=== PATIENT | male | born 1960 | race Caucasian/White ===

== ENCOUNTER 2024-09-12 08:30 | Outpatient (RCR) | payer MEDICARE, MEDICAID, SELFPAY ==
--- NOTE | 2024-08-22 10:46 | PT.ODAYNRPT ---
PT Outpatient Daily Note OP Daily Note Outpatient Physical Therapy Treatment Date: 08/22/24 Visit Reasons: left knee surgery Subjective: Pt's knee hurts more after last session due to heel prop exercise. Pt also reports of having knee stiffness with the first few steps but stiffness goes away. Objective: Left Knee AROM: -20 deg to 115 deg Assessment: Pt's progressing with knee flexion AROM, however, regressing with knee extension due to lack of stretching at home. Pt encouraged and instructed to start stretching at home to improve knee extension lag. Plan: Continue with PT Length of Time (minutes) of Treatment: 30 Minutes Procedure Charges Therapeutic Exercise 30 minutes: Yes
--- NOTE | 2024-08-31 13:13 | PTNOTE_ITS ---
PT Outpatient Daily Note OP Daily Note Outpatient Physical Therapy Treatment Date: 08/31/24 Visit Reasons: left knee surgery Subjective: Pt reports he has been working on his HEP but still feels it is sore. Objective: Please see flow sheet for ther ex list. Assessment: Pt highly guarded during attempt to perform PROM knto knee extension, discontinued. MEDICAL DOCTOR NUCLEAR MEDICINE performed STM to posterior knee, pt tender but able to tolerate. Plan: Assess response to treatment. Length of Time (minutes) of Treatment: 30 Minutes MEDICAL DOCTOR NUCLEAR MEDICINE Service Modifier Method I: Divide the number of min of care provided by the MEDICAL DOCTOR NUCLEAR MEDICINE/HEAD COOK by the total min of care provided then multiply by 100. If greater than 11 percent modifier is required. Method II: Divide the total time of care provided to patient by 10 (round to the nearest whole number) and add 1 min. to set the minimum time requirement. If treatment total was 60 min., then 10% of 6 min PT CQ modifier applied: CQ Modifier applied Procedure Charges Therapeutic Exercise 30 minutes: Yes
--- NOTE | 2024-09-07 10:56 | PT.ODAYNRPT ---
PT Outpatient Daily Note OP Daily Note Outpatient Physical Therapy Treatment Date: 09/07/24 Visit Reasons: left knee surgery Subjective: Pt mention his calf is tight and has been stretching as able at home. Pt notice decrease calf pain after STM from [employer] last session. Objective: Left Knee Flexion AROM: 115 deg Assessment: progressing with knee flexion AROM. Decrease gastroc pain post STM and runner's stretch Plan: Continue with PT Length of Time (minutes) of Treatment: 30 Minutes Procedure Charges Therapeutic Exercise 30 minutes: Yes
--- NOTE | 2024-09-12 09:53 | PT.ODAYNRPT ---
PT Outpatient Daily Note OP Daily Note Outpatient Physical Therapy Treatment Date: 09/12/24 Visit Reasons: left knee surgery Subjective: Pt's knee is better and does not have much concerns. Pt does not seen MD until next month. Objective: Please see flow chart for list of ther ex performed Assessment: added more closed chain and resistance hip exercises with good tolerance Plan: Continue with PT Length of Time (minutes) of Treatment: 30 Minutes Procedure Charges Therapeutic Exercise 30 minutes: Yes
== END 2024-09-16 23:59 | disposition home or self-care (01) ==
LOC: CPTX 08:30
PROVIDERS: PCP Nurse Practitioner Family; Referring Provider Nurse Practitioner Family; Visit Provider Nurse Practitioner Family
DX: M25.562 Pain in left knee (principal); R26.2 Difficulty in walking, not elsewhere classified; R26.89 Other abnormalities of gait and mobility; Z96.652 Presence of left artificial knee joint
CPT/HCPCS: 97110

== ENCOUNTER 2024-10-05 09:00 | Outpatient (RCR) | payer MEDICARE, MEDICAID, SELFPAY ==
--- NOTE | 2024-09-25 08:49 | PT.ODAYNRPT ---
PT Outpatient Daily Note OP Daily Note Outpatient Physical Therapy Treatment Date: 09/25/24 Visit Reasons: left knee surgery Subjective: Pt's knee is better. Pt no longer experience calf pain lately. He continues to stretch at home. Objective: Please see flow chart for list of ther ex performed Assessment: progressing with closed chain exercises. Advanced patient to wall wall squat; patient able to squat to 60 deg of knee flexion Plan: Continue with PT Length of Time (minutes) of Treatment: 30 Minutes Procedure Charges Therapeutic Exercise 30 minutes: Yes
--- NOTE | 2024-09-27 09:07 | PT.ODAYNRPT ---
PT Outpatient Daily Note OP Daily Note Outpatient Physical Therapy Treatment Date: 09/27/24 Visit Reasons: left knee surgery Subjective: Pt still has difficulty putting on his shoes. Objective: Please see flow chart for list of ther ex performed Assessment: patient was instructed on figure four stretch to help improve hip mobility to work on being able to put on his shoes. Pt demonstrate exercises safely Plan: Continue with PT Length of Time (minutes) of Treatment: 30 Minutes Procedure Charges Therapeutic Exercise 30 minutes: Yes
--- NOTE | 2024-10-05 09:48 | PT.ODAYNRPT ---
PT Outpatient Daily Note OP Daily Note Outpatient Physical Therapy Treatment Date: 10/05/24 Visit Reasons: left knee surgery Subjective: Pt reports L knee is doing ok, ROM is not where he would like. Objective: Please see flow sheet for ther ex list. Assessment: Pt demonstrates poor tolerance with heel prop exercise for knee extension due to pain response, pt highly guarded. Plan: Continue with POC. Length of Time (minutes) of Treatment: 30 Minutes NURSING PROGRAM MANAGER Service Modifier Method I: Divide the number of min of care provided by the NURSING PROGRAM MANAGER/MARKETING ASSISTANT by the total min of care provided then multiply by 100. If greater than 11 percent modifier is required. Method II: Divide the total time of care provided to patient by 10 (round to the nearest whole number) and add 1 min. to set the minimum time requirement. If treatment total was 60 min., then 10% of 6 min PT CQ modifier applied: CQ Modifier applied Procedure Charges Therapeutic Exercise 30 minutes: Yes
== END 2024-10-17 23:59 | disposition home or self-care (01) ==
LOC: CPTX 09:00
PROVIDERS: PCP Nurse Practitioner Family; Referring Provider Nurse Practitioner Family; Visit Provider Nurse Practitioner Family
DX: M25.562 Pain in left knee (principal); R26.2 Difficulty in walking, not elsewhere classified; Z96.652 Presence of left artificial knee joint
CPT/HCPCS: 97110

== ENCOUNTER 2024-11-09 09:30 | Outpatient (RCR) | payer MEDICARE, MEDICAID, SELFPAY ==
--- NOTE | 2024-10-25 13:56 | PT.ODS1RPT ---
PT OP Progress/Discharge Note Date of Service: 10/25/24 Progress Note/DC Note Progress Note/Discharge Note: Progress Note Patient Information Visit Reasons: Left knee surgery Medical Diagnosis: z96.652 Treatment Dx #1: Left Knee Mobility Deficits Service Continue Service or Discharge: Continue Service Certification Date Certification Dates: 10/25/24 to 01/23/25 Status Subjective: Pt's knee feels better but still notice some pain. Pt has limitation with putting on shoes, balance, prolonged walking, and performing ADLs. Pt will like to continue physical therapy. Objective: Left Knee AROM: -15 deg to 116 deg Left Knee PROM: -12 deg to 120 deg Left Knee MMTs: grossly 4-/5 Left Hip MMTs: grossly 4-/5 SLS: 5 sec Assessment: Pt is progress with knee AROM and strength allowing him to resume ADLs, walk, and perform chores with less limitation. Pt has not met set goals and will continue to benefit from physical therapy; thank you for your referrals. Plan: Continue with PT/POC and add 8 sessions (2 x wk for 4 wks) Procedure Charges Therapeutic Exercise 30 minutes: Yes
--- NOTE | 2024-11-07 10:36 | PT.ODAYNRPT ---
PT Outpatient Daily Note OP Daily Note Outpatient Physical Therapy Treatment Date: 11/07/24 Visit Reasons: Left knee surgery Subjective: Pt reports L knee continues to be stiff, has been performing HEP. Objective: Please see flow sheet for ther ex list. Assessment: Pt educated and instructed on updated HEP, pt able to replicate with good technique. Plan: Continue with POC. Length of Time (minutes) of Treatment: 30 Minutes AUTO AIR CONDITIONING INSTALLER Service Modifier Method I: Divide the number of min of care provided by the AUTO AIR CONDITIONING INSTALLER/HOUSING QUALITY STANDARD INSPECTOR by the total min of care provided then multiply by 100. If greater than 11 percent modifier is required. Method II: Divide the total time of care provided to patient by 10 (round to the nearest whole number) and add 1 min. to set the minimum time requirement. If treatment total was 60 min., then 10% of 6 min PT CQ modifier applied: CQ Modifier applied Procedure Charges Therapeutic Exercise 30 minutes: Yes
--- NOTE | 2024-11-09 10:24 | PT.ODAYNRPT ---
PT Outpatient Daily Note OP Daily Note Outpatient Physical Therapy Treatment Date: 11/09/24 Visit Reasons: Left knee surgery Subjective: Pt's knee feels stiff but overall improving with ROM. Pt still has difficulty putting on his left shoe. Objective: Please see flow chart for list of ther ex performed Assessment: minimal changes with knee extension lag noted. Pt encourage to continue stretching at home. Progressing with hip exercises with less pain reported Plan: Continue with PT Length of Time (minutes) of Treatment: 30 Minutes Procedure Charges Therapeutic Exercise 30 minutes: Yes
== END 2024-11-17 23:59 | disposition home or self-care (01) ==
LOC: CPTX 09:30
PROVIDERS: PCP Nurse Practitioner Family; Referring Provider Nurse Practitioner Family; Visit Provider Nurse Practitioner Family
DX: M25.562 Pain in left knee (principal); R26.2 Difficulty in walking, not elsewhere classified; R26.89 Other abnormalities of gait and mobility; Z96.652 Presence of left artificial knee joint
CPT/HCPCS: 97110

== ENCOUNTER 2024-12-12 08:24 | Outpatient (RCR) | payer MEDICARE, MEDICAID, SELFPAY | END 2024-12-15 23:59 | disposition home or self-care (01) | LOC: CPTX 08:24 | PROVIDERS: PCP Nurse Practitioner Family; Referring Provider Nurse Practitioner Family; Visit Provider Nurse Practitioner Family | DX: Z53.8 Procedure and treatment not carried out for other reasons (principal) ==

== ENCOUNTER → 2025-06-06 | Outpatient (CLI) | payer MEDICARE, MEDICAID, SELFPAY ==
--- NOTE | 2025-06-06 13:30 | XR_ITS ---
Examination: CT chest, without intravenous contrast. Sagittal and coronal 2-D reconstructions. Exam date and time: June 06, 2025 1343 hours INDICATIONS: Smoking history 30 post years screening for lung carcinoma CTDI:vol (mGy) 14.2 DLP: (mGycm) 569 Technique: Multiple 3.0 mm axial sections of the chest to been obtained. Bone and lung density settings are obtained. Sagittal and coronal 2-D reconstructions have been obtained. Low dose protocols were performed. One or more of the following dose reduction techniques were used; automated exposure control, adjustment of the mA and/or KV according to patient size, use of iterative reconstruction technique. Findings: Thoracic aortic calcification no aneurysmal dilatation Pulmonary artery segments are not enlarged. No paratracheal tracheobronchial or bronchopulmonary adenopathy. 3 mm pulmonary nodule right upper lobe image 141 2 mm pulmonary nodule left upper lobe image 144 3 mm pulmonary nodule right lower lobe image 186 3 mm pulmonary nodule left lower lobe image 226 No pneumonia or pulmonary edema 10 mm anterior liver lesion adjacent to the gallbladder axial image 336 IMPRESSION: Pulmonary nodules as above, with this study as baseline recommend 6 month follow-up CT chest without contrast Recommend MRI abdomen liver follow-up pre and postcontrast to assess the 10 mm anterior liver lesion
== END | disposition home or self-care (01) ==
LOC: CCTX 13:43
PROVIDERS: Referring Provider Physician Assistant Medical; Visit Provider Physician Assistant Medical
DX: Z12.2 Encounter for screening for malignant neoplasm of respiratory organs (principal); R91.8 Other nonspecific abnormal finding of lung field; K76.9 Liver disease, unspecified
CPT/HCPCS: 71271

== ENCOUNTER → 2025-06-11 | Outpatient (CLI) | payer MEDICARE, MEDICAID, SELFPAY ==
--- NOTE | 2025-06-11 15:00 | XR_ITS ---
Examination: Ultrasound abdominal aorta TECHNIQUE: Galvan scale sonographic images of abdominal aorta Date and time: June 11, 2025, 1523 hours INDICATIONS: Nicotine dependence TECHNIQUE AND FINDINGS: Transabdominal sonographic images abdominal aorta Transverse dimension proximal aorta 2.4 cm mid aorta 1.4 cm distal aorta 1.5 cm right iliac 1.1 cm left iliac 1.0 cm IMPRESSION: Negative for abdominal aortic aneurysm
== END | disposition home or self-care (01) ==
PROVIDERS: PCP Physician Assistant Medical; Referring Provider Physician Assistant Medical; Visit Provider Physician Assistant Medical
DX: Z13.6 Encounter for screening for cardiovascular disorders (principal); F17.211 Nicotine dependence, cigarettes, in remission
CPT/HCPCS: 76770

== ENCOUNTER → 2025-06-29 | Outpatient (CLI) | payer MEDICARE, MEDICAID, SELFPAY ==
--- NOTE | 2025-06-29 15:00 | XR_ITS ---
Examination: MRI lumbar spine, without intravenous contrast. MRI lumbar spine , with intravenous contrast. Exam date and time: June 29, 2025, 1525 hours INDICATIONS: Low back pain weakness in the legs beginning 5 years ago Technique: Multiple axial, sagittal and coronal images of the lumbar spine have been obtained with the Siemens high-resolution 1.5 Yissel MRI scanner. Images obtained included T2 weighted fat suppressed sagittal sections, TR 3500, TE 46, T2 weighted coronal fat suppressed images, TR 3050, TE 84, T2-weighted transverse fat suppressed images, TR 30-60, TE 63, proton density transverse images, TR 4720, TE 46, and T1 weighted coronal images, TR 560, TE 13. Axial, sagittal and coronal images are obtained post intravenous injection 16 cc gadolinium. Findings: Adequate alignment lumbar vertebral bodies Diffuse moderate to advanced lumbar degenerative disc disease, most prominent L2-L3, L4-L5, L5-S1 Postcontrast images demonstrate no abnormal osseous epidural conus medullaris or cauda equina enhancement No spondylolisthesis L5-S1 6 mm central lumbar disc bulge contiguous with the S1 nerve roots and producing mild left moderate right L5 ganglionic compression L4-L5 3 mm left 5 mm right foraminal disc bulges without ganglionic compression L3-L4 4 mm foraminal disc bulges no ganglionic compression L2-L3 small foraminal disc bulges no ganglionic compression L1-2 no disc protrusion IMPRESSION: Diffuse moderate to advanced lumbar degenerative disc disease L5-S1 6 mm central lumbar disc bulge contiguous with the right and left S1 nerve roots and producing mild left moderate right L5 ganglionic compression
== END | disposition home or self-care (01) ==
PROVIDERS: PCP Physician Assistant Medical; Referring Provider Physician Assistant Medical; Visit Provider Physician Assistant Medical
DX: M51.360 Other intervertebral disc degeneration, lumbar region with discogenic back pain only (principal); M51.370 Other intervertebral disc degeneration, lumbosacral region with discogenic back pain only; G95.20 Unspecified cord compression
CPT/HCPCS: 72158; A9577

== ENCOUNTER 2025-07-03 09:05 | Day surgery (SDC) | payer MEDICARE, MEDICAID, SELFPAY ==
--- NOTE | 2025-06-29 07:37 | EKG_ITS ---
[facility] Test Date: 2025-06-29 Pat Name: ANGELA HO Department: Room: - Gender: Male Machine Rough Rounder: ELBA : 1960 Requested By: Kiel Lea Order Number: [id number] Reading MD: Kiel Lea Measurements Intervals [place] Rate: 62 P: 64 DC: 148 QRS: 74 QRSD: 96 T: 67 QT: 379 QTc: 386 Interpretive Statements SINUS RHYTHM INCOMPLETE RIGHT BUNDLE BRANCH BLOCK [90+ ms QRS DURATION, TERMINAL R IN V1/V2, 40+ ms S IN I/aVL/V4/V5/V6] Compared to ECG 08/18/2018 09:58:09 Incomplete right bundle-branch block now present Sinus bradycardia no longer present /store/S0/[id number]/ecg/[id number].pdf
[2025-06-29 07:47] VITALS: BMI 28.4
[2025-06-29 08:09] LABS: Collection Type, Urine Clean Catch; Squamous Epithelial Cell,Urine 0 /hpf (0-5)
[2025-06-29 08:32] LABS: Basophils # (Auto) 0.0 Thou/mm3 (0.0-0.2); Basophils % (Auto) 1 % (0-2.5); Eosinophils # (Auto) 0.5 Thou/mm3 (0.0-0.5); Eosinophils % (Auto) 6 % (0-10); Hematocrit 44.3 % (41.0-53.0); Hemoglobin 15.3 g/dL (13.5-16.0); Immature Granulocytes Auto 0.03 Thou/mm3 (0.00-0.00); Lymphocytes # (Auto) 3.3 Thou/mm3 (1.0-4.8); Lymphocytes % (Auto) 41 % (10-50); Mean Corpuscular HGB Conc 34.5 g/dl (31.0-37.0); Mean Corpuscular Hemoglobin 31.5 pg (25.0-35.0); Mean Corpuscular Volume 91 fL (80-100); Monocytes # (Auto) 0.6 Thou/mm3 (0.0-0.8); Monocytes % (Auto) 7 % (0-12); Neutrophils # (Auto) 3.6 Thou/mm3 (1.8-7.7); Neutrophils % (Auto) 45 % (37-80); Nucleated Red Blood Cell # 0.00 Thou/mm3 (0.00-0.00); Nucleated Red Blood Cell % 0 /100 WBC (0); Platelet Count 256 Thou/mm3 (140-440); RDW Standard Deviation 43.3 fL (35.1-43.9); Red Blood Count 4.86 Miln/mm3 (4.50-5.90); White Blood Count 8.0 Thou/mm3 (3.8-10.6)
[2025-06-29 08:38] LABS: Bilirubin,Urine Negative (Negative); Blood,Urine Negative (Negative); Clarity,Urine Clear (Clear/Hazy); Color,Urine Lt-Yellow (Lt Yel-Yel); Glucose, Urine Negative (Negative); Ketones,Urine Negative (Negative); Leukocyte Esterase,Urine Negative (Negative); Nitrite,Urine Negative (Negative); PH,Urine 6.5 (5.0-7.0); Protein,Urine Negative (Neg - Trace); RBC,Urine 1 /hpf (0-3); Specific Gravity,Urine 1.012 (1.001-1.035); Urobilinogen,Urine Negative mg/dL (0.0-1.0); WBC,Urine < 1 /hpf (0-5)
[2025-06-29 08:42] LABS: Alanine Aminotransferase 22 U/L (10-49); Albumin, Serum 4.4 gm/dL (3.4-4.8); Albumin/Globulin Ratio 1.8 (1.2-2.2); Alkaline Phosphatase 117 U/L (46-116); Anion Gap 10 (7-16); Aspartate Amino Transferase 20 U/L (0-34); BUN/Creatinine Ratio 11 Ratio (12-20); Bilirubin,Total 0.4 mg/dL (0.3-1.2); Blood Urea Nitrogen 13 mg/dL (9-23); Calcium 10.1 mg/dL (8.3-10.6); Calcium (Corrected) 10.1 mg/dL (8.5-10.1); Carbon Dioxide 26.0 mMol/L (20.0-31.0); Chloride 104 mMol/L (98-107); Creatinine (Component) 1.2 mg/dL (0.6-1.3); Estimated Creatinine Clearance 64.2 mL/min (>60); Globulin 2.5 gm/dL (2.3-3.5); Glucose 127 mg/dL (74-106); Osmolality,Calculated 281 (275-295); Potassium 4.6 mMol/L (3.4-5.1); Sodium 140 mMol/L (136-145); Total Protein 6.9 gm/dL (5.7-8.2); eGFR > 60 See Note
--- NOTE | 2025-07-02 11:48 | ESHP_ITS ---
RE: ANGELA HO : 1960 DATE OF ADMISSION: 07/03/2025 HISTORY OF PRESENT ILLNESS: The patient is a 65-year-old male with scrotal swelling for about a few months. He is symptomatic. Nocturia x1. Urinary flow is fair. PAST MEDICAL HISTORY: He has no history of diabetes mellitus. No history of hypertension. PAST SURGICAL HISTORY: Right shoulder operation, left knee operation, umbilical hernia repair, 2 knee surgeries, sinus operation, and right leg operation. SOCIAL HISTORY: The patient has no children. HOME MEDICATIONS: He takes Seroquel for sleeping. ALLERGIES: NONE KNOWN. PHYSICAL EXAMINATION: HEENT: Normal. NECK: Supple. LUNGS: Clear. CARDIOVASCULAR: Heart sounds are normal. ABDOMEN: Soft without any organomegaly. No guarding. No rigidity. EXTREMITIES: Normal. GENITOURINARY: Phallus is normal. Testes are down in the scrotum. There is a left-sided epididymal cyst, which is about 2 inches in size. LABORATORY DATA: The patient's PSA is normal at 3.4. IMPRESSION: Left epididymal cyst causing left scrotal swelling, which is bothering him. PLAN: Left spermatocelectomy. Planned procedure risks and complications have been discussed with the patient. The patient has understood them and agreed to proceed. DT: :: TT: 11:46:00 Ref: [id number] - TID: [id number]
[2025-07-03 09:44] VITALS: BP 111/67; PULSE 69; RESP 12; TEMP 36.9; O2SAT 97; BMI 28.1
[2025-07-03] MEDS: RINGERS LACTATED 1000 ML 1,000 ML 20 ML IV (09:53)
[2025-07-03 12:15] VITALS: BP 102/62; PULSE 67; RESP 20; TEMP 36.5; O2SAT 95
--- NOTE | 2025-07-03 12:15 | SUR.PHASEII ---
pt received from [facility] in recovery bay 1. pt awake and alert, breathing unlabored on oxymask 6l. v/s stable. pt dressing to scrotal area cdi. report received from Antonio STILL and Josh MONTERROSO.
[2025-07-03 12:20] VITALS: BP 117/69; PULSE 70; RESP 16; TEMP 36.4; O2SAT 97
[2025-07-03 12:25] VITALS: BP 104/60; PULSE 65; RESP 19; TEMP 36.4; O2SAT 97
[2025-07-03 12:30] VITALS: BP 121/58; PULSE 64; RESP 15; TEMP 36.4; O2SAT 98
--- NOTE | 2025-07-03 12:32 | SUR.PHASEII ---
pt able to tolerate oral fluids without difficulty swallowing or nausea/vomiting.
--- NOTE | 2025-07-03 12:53 | SUR.PHASEII ---
pt awake and alert, breathing unlabored on room air. v/s stable. pt dressing to scrotal area cdi. pt able to ambulate to wheelchair with steady gait. d/c instructions given with Phil in room, all questions answered. pt d/c via wheelchair with all belongings.
--- NOTE | 2025-07-03 13:50 | ESOP_ITS ---
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 POSTOPERATIVE DIAGNOSIS: Left scrotal spermatocele about 4-5 cm in size, symptomatic with prominent appendix of left testis. PROCEDURES: Left spermatocelectomy and excision and fulguration of the appendix of left testis. ANESTHESIA: Monitored anesthesia by Dr. Burgess with local anesthetic. INDICATION: The patient is a 65-year-old male with left scrotal swelling. Ultrasound revealed that he has a left spermatocele-epididymal cyst about 4-5 cm in size above the left testis. The patient is concerned about it and he wishes to have this removed. Planned procedure, risks and complications have been discussed with the patient. The patient understood them and agreed to proceed. DESCRIPTION OF PROCEDURE: After the patient was brought to the operating table under adequate monitored anesthesia, he was placed in supine position. Parts were prepped and draped in the usual fashion. Local anesthetic was injected at the incision, which was about 4-5 cm long over the left scrotum. Up-and-down incision was then made. Dissection was then carried out. Tunica vaginalis sac was opened. The testis appeared to be normal except prominent appendix of the left testis. This was excised and fulgurated. The patient has a left scrotal spermatocele about 4-5 cm long above the left testis. This was carefully excised. Complete hemostasis was obtained. The testis was put back into the hemiscrotum and the wound was closed in two layers using 3-0 chromic catgut sutures. Local anesthetic was also injected for control of the pain postoperatively. Sterile dressing was then applied. The patient was then transferred to the recovery room in a satisfactory condition having tolerated the entire procedure well. Sponge count and needle count at the end of the procedure was found to be correct. Estimated blood loss was approximately 2-3 mL. DT: 12:33:45 TT: 13:49:00 Ref: [id number] - TID: [id number]
== END 2025-07-03 12:53 | disposition home or self-care (01) ==
PROVIDERS: Anesthesiology; PCP Nurse Practitioner Family; Referring Provider Surgery; Visit Provider Surgery
PROC: (CPT 54840; principal; 2025-07-03 11:15)
DX: N43.41 Spermatocele of epididymis, single (principal); Q55.29 Other congenital malformations of testis and scrotum; Z01.810 Encounter for preprocedural cardiovascular examination; R53.1 Weakness; N50.3 Cyst of epididymis
CPT/HCPCS: 54840; 36415; 80053; 81001; 85025; 93005; A4649; J1100; J2250; J2704; J3010; J3490; J7120; A9270

== ENCOUNTER → 2025-09-21 | Outpatient (CLI) | payer MEDICARE, SELFPAY ==
--- NOTE | 2025-09-21 14:30 | XR_ITS ---
EXAMINATION: Testicular sonography complete TECHNIQUE: Grayscale sonographic images testes, assessment arterial inflow and venous outflow Doppler spectral analysis color flow analysis Date and time: September 21, 2025, 1430 hours INDICATIONS: Diagnosis spermatocele, left testicular swelling postremoval left testicle cyst surgery 2 months ago FINDINGS: Right testis 4.1 cm epididymis 1.7 cm Epididymal cysts including 17 mm, 4 mm Arterial flow the testicle. No testicular mass Moderate right hydrocele Left testis 3.8 cm epididymis 11 mm Arterial flow the testicle. No solid testicular mass 6 mm testicular cyst IMPRESSION: No testicular torsion or testicular mass Benign right epididymal cyst Small benign left testicular cyst
== END | disposition home or self-care (01) ==
LOC: CDIM 14:12
PROVIDERS: PCP Physician Assistant Medical; Referring Provider Surgery; Visit Provider Surgery
DX: N50.3 Cyst of epididymis (principal)
CPT/HCPCS: 76870